=== PATIENT | male | born 1930 | race African-American/Black ===

== ENCOUNTER 2019-09-05 07:57 | Inpatient (IN) | payer MEDICARE, MEDICAID ==
[~2019-09-05] VITALS: Ht 177.8 cm; Wt 79.4 kg
[~2019-09-05 07:57] MED LIST: ALBU2.5V13 NEB; AMIN30LI2 PO; ASCO100T12 MT; ASPI-1158 MT; BISA-81 PO; BUDE0.5A3 NEB; CLON-457 MT; DOCU-138 MT; FAMO-135 MT; FERR-71 MT; FOLI-43 MT; MOM MT; MULT-1116 MT; TOPUD MT; TRAM100T34 MT; TRAM50TA3 MT; VIT1CAPS47 MT
[2019-09-05] MEDS ORDERED: METHYLPREDNISOLONE SOD SUCC 125 MG/2 ML VIAL IV STA (08:38)
[2019-09-05] MEDS ORDERED: ALBUTEROL (0.083%) 2.5MG/3ML NEB HHN STA (08:38)
[2019-09-05] MEDS ORDERED: IPRATROPIUM BROMIDE (0.02%) 0.5MG/2.5ML NEB HHN STA (08:38)
[2019-09-05 08:52] LABS: BASOPHILS % 0.7 % (0.0-2.0); EOSINOPHILS % 2.1 % (0.0-5.0); HEMATOCRIT. 34.4 % (42.0-52.0); HEMOGLOBIN. 11.2 g/dL (14.0-18.0); LYMPHOCYTES % 18.5 % (20.0-50.0); MEAN CORPUSCULAR HEMOGLOBIN 30.2 pg (28.0-32.0); MEAN CORPUSCULAR VOLUME 92.4 fL (80.0-94.0); MEAN PLATELET VOLUME 9.6 fl (7.4-10.4); MONOCYTES % 10.5 % (2.0-8.0); NEUTROPHILS % 68.2 % (40.0-76.0); PLATELET 161 x1000/uL (130-400); RED BLOOD CELL COUNT 3.72 mill/uL (4.7-6.1); RED CELL DISTRIBUTION WIDTH 16.3 % (11.6-14.6)
[2019-09-05 08:59] LABS: CHLORIDE 103 mEq/L (98-107)
[2019-09-05] MEDS ORDERED: LEVOFLOXACIN 750MG PREMIX 150 ML IV ONE (09:45)
[2019-09-05] MEDS: GUAIFENESIN 200MG/10ML SUGAR FREE UDC PO PRN ×2 (14:07→19:04)
[2019-09-05] MEDS ORDERED: ACETAMINOPHEN 325MG TABLET PO PRN (15:15)
[2019-09-05] MEDS ORDERED: ONDANSETRON HCL 4MG/2ML INJ IV PRN (15:15)
[2019-09-05] MEDS ORDERED: IPRATROPIUM/ALBUTEROL 0.5-3(2.5)MG/3ML NEB HHN PRN ×2 (15:15→17:45)
[2019-09-05] MEDS ORDERED: ENOXAPARIN 40MG/0.4ML SYR SUBCUT SCH (15:15)
[2019-09-05] MEDS ORDERED: LEVOFLOXACIN 500MG PREMIX 100 ML IV SCH (15:15)
[2019-09-05] MEDS: METHYLPREDNISOLONE SOD SUCC 40 MG/ML VIAL IV SCH (17:12)
[2019-09-05 20:30] VITALS: BP 128/70
[2019-09-05 21:00] VITALS: BP 128/70
[2019-09-05] MEDS: IPRATROPIUM/ALBUTEROL 0.5-3(2.5)MG/3ML NEB HHN SCH (21:30)
[2019-09-06] VITALS: BP 132/79
[2019-09-06] MEDS: GUAIFENESIN 200MG/10ML SUGAR FREE UDC PO PRN (00:08)
[2019-09-06] MEDS ORDERED: DILT30TA3 PO (00:46)
[2019-09-06] MEDS ORDERED: IPRA3AMP31 IH (00:46)
[2019-09-06] MEDS ORDERED: OLOP2.5D EACHEYE (00:46)
[2019-09-06] MEDS ORDERED: NA P230E RC (00:46)
[2019-09-06] MEDS ORDERED: LEVO750T21 PO (00:46)
[2019-09-06] MEDS ORDERED: [UNRECOGNIZED DRUG - OTHER] PO (00:46)
[2019-09-06] MEDS: IPRATROPIUM/ALBUTEROL 0.5-3(2.5)MG/3ML NEB HHN SCH ×5 (00:52→20:55)
[2019-09-06] MEDS: METHYLPREDNISOLONE SOD SUCC 40 MG/ML VIAL IV SCH ×2 (02:41→10:47)
[2019-09-06 04:00] VITALS: BP 170/87
[2019-09-06] MEDS: PANTOPRAZOLE 40MG DR TABLET PO SCH (06:37)
[2019-09-06 08:00] VITALS: BP 141/80
[2019-09-06] MEDS: ENOXAPARIN 40MG/0.4ML SYR SUBCUT SCH (09:00)
[2019-09-06] MEDS: ASPIRIN 81MG TABLET PO SCH (09:20)
[2019-09-06] MEDS ORDERED: CLONIDINE 0.1MG TABLET PO PRN (09:30)
[2019-09-06] MEDS: LEVOFLOXACIN 500MG PREMIX 100 ML IV SCH (10:51)
[2019-09-06 11:18] LABS: HEMATOCRIT. 34.7 % (42.0-52.0); HEMOGLOBIN. 11.5 g/dL (14.0-18.0); MEAN CORPUSCULAR HEMOGLOBIN 30.4 pg (28.0-32.0); MEAN CORPUSCULAR VOLUME 91.9 fL (80.0-94.0); MEAN PLATELET VOLUME 8.9 fl (7.4-10.4); PLATELET 204 x1000/uL (130-400); RED BLOOD CELL COUNT 3.77 mill/uL (4.7-6.1); RED CELL DISTRIBUTION WIDTH 15.8 % (11.6-14.6)
[2019-09-06 11:29] LABS: CHLORIDE 103 mEq/L (98-107)
[2019-09-06 12:00] VITALS: BP 162/89
[2019-09-06] MEDS: DILTIAZEM HCL 30MG TABLET PO SCH ×2 (12:00→17:31)
[2019-09-06 13:26] LABS: PLATELET ESTIMATE NORMAL
[2019-09-06 16:00] VITALS: BP 146/82
[2019-09-06] MEDS: PREDNISONE 20MG TABLET PO SCH (17:35)
[2019-09-06 20:32] VITALS: BP 141/85
[2019-09-07] MEDS: IPRATROPIUM/ALBUTEROL 0.5-3(2.5)MG/3ML NEB HHN SCH ×4 (01:30→12:00)
[2019-09-07 04:00] VITALS: BP 158/87
[2019-09-07] MEDS: GUAIFENESIN 200MG/10ML SUGAR FREE UDC PO PRN ×2 (04:19→17:14)
[2019-09-07] MEDS: PANTOPRAZOLE 40MG DR TABLET PO SCH (06:20)
[2019-09-07] MEDS: DILTIAZEM HCL 30MG TABLET PO SCH ×4 (06:20→17:09)
[2019-09-07 08:16] LABS: HEMATOCRIT. 34.4 % (42.0-52.0); HEMOGLOBIN. 11.4 g/dL (14.0-18.0); MEAN CORPUSCULAR HEMOGLOBIN 30.6 pg (28.0-32.0); MEAN PLATELET VOLUME 8.9 fl (7.4-10.4); PLATELET 219 x1000/uL (130-400); RED BLOOD CELL COUNT 3.74 mill/uL (4.7-6.1); RED CELL DISTRIBUTION WIDTH 15.7 % (11.6-14.6)
[2019-09-07 08:34] VITALS: BP 165/69
[2019-09-07 08:42] LABS: CHLORIDE 105 mEq/L (98-107)
[2019-09-07] MEDS: ASPIRIN 81MG TABLET PO SCH (10:00)
[2019-09-07] MEDS: LEVOFLOXACIN 500MG PREMIX 100 ML IV SCH (10:01)
[2019-09-07] MEDS: ENOXAPARIN 40MG/0.4ML SYR SUBCUT SCH (10:01)
[2019-09-07] MEDS: PREDNISONE 20MG TABLET PO SCH (12:00)
[2019-09-07 12:05] VITALS: BP 118/61
[2019-09-07 13:08] LABS: PLATELET ESTIMATE NORMAL
[2019-09-07 15:57] VITALS: BP 127/82
[2019-09-07 20:00] VITALS: BP 134/69
[2019-09-08] VITALS: BP 138/65
[2019-09-08] MEDS: DILTIAZEM HCL 30MG TABLET PO SCH ×4 (00:40→17:44)
[2019-09-08 04:00] VITALS: BP 134/67
[2019-09-08] MEDS: PANTOPRAZOLE 40MG DR TABLET PO SCH (06:40)
[2019-09-08 06:44] LABS: BASOPHILS % 0.1 % (0.0-2.0); EOSINOPHILS % 0.1 % (0.0-5.0); HEMATOCRIT. 34.8 % (42.0-52.0); HEMOGLOBIN. 11.5 g/dL (14.0-18.0); LYMPHOCYTES % 10.2 % (20.0-50.0); MEAN CORPUSCULAR HEMOGLOBIN 30.6 pg (28.0-32.0); MEAN CORPUSCULAR VOLUME 92.5 fL (80.0-94.0); MEAN PLATELET VOLUME 8.7 fl (7.4-10.4); MONOCYTES % 9.6 % (2.0-8.0); PLATELET 207 x1000/uL (130-400); RED BLOOD CELL COUNT 3.77 mill/uL (4.7-6.1)
[2019-09-08 07:14] LABS: CHLORIDE 103 mEq/L (98-107)
[2019-09-08 08:05] VITALS: BP 144/67
[2019-09-08] MEDS: ASPIRIN 81MG TABLET PO SCH (08:33)
[2019-09-08] MEDS: ENOXAPARIN 40MG/0.4ML SYR SUBCUT SCH (08:33)
[2019-09-08] MEDS ORDERED: PREDNISONE 20MG TABLET PO SCH (09:00)
[2019-09-08] MEDS: LEVOFLOXACIN 500MG PREMIX 100 ML IV SCH (10:23)
[2019-09-08] MEDS: GUAIFENESIN 200MG/10ML SUGAR FREE UDC PO PRN (10:23)
[2019-09-08 11:59] VITALS: BP 122/84
[2019-09-08 16:09] VITALS: BP 130/69
[2019-09-08 18:14] VITALS: BP 130/69
[2019-09-09] MEDS ORDERED: FAMOTIDINE 20MG TABLET PO SCH (09:00)
[2019-09-09] MEDS ORDERED: LEVOFLOXACIN 500MG TABLET PO SCH (11:00)
== END 2019-09-08 18:40 | DRG 871 ==
LOC: ER 07:57 → 6WST 10:21 → EDBEDREQTM 10:30 → EDBEDREQ 10:30 → ENRESERV 18:32 → 6WST 21:52
PROVIDERS: ADMIT Internal Medicine; ATTEND Internal Medicine
DX: A41.9 Sepsis, unspecified organism (principal); J96.00 Acute respiratory failure, unspecified whether with hypoxia or hypercapnia; J18.9 Pneumonia, unspecified organism; J44.1 Chronic obstructive pulmonary disease with (acute) exacerbation; J44.0 Chronic obstructive pulmonary disease with (acute) lower respiratory infection; I25.10 Atherosclerotic heart disease of native coronary artery without angina pectoris; I10 Essential (primary) hypertension; F02.80 Dementia in other diseases classified elsewhere, unspecified severity, without behavioral disturbance, psychotic disturbance, mood disturbance, and anxiety; K21.9 Gastro-esophageal reflux disease without esophagitis; I27.20 Pulmonary hypertension, unspecified; M19.90 Unspecified osteoarthritis, unspecified site; D64.9 Anemia, unspecified; Z96.651 Presence of right artificial knee joint; Z99.81 Dependence on supplemental oxygen; G30.9 Alzheimer's disease, unspecified; Z79.82 Long term (current) use of aspirin; Z87.891 Personal history of nicotine dependence
CPT/HCPCS: 36415; 71045; 80048; 80053; 83880; 84484; 85025; 93005; 96365; 99285; J1650; J1956; J2920; J2930; J7512; J7611; J7620

== ENCOUNTER 2019-10-07 19:06 | Emergency (ER) | payer MEDICARE, MEDICAID ==
[~2019-10-07] VITALS: Ht 188 cm; Wt 92.0 kg
[~2019-10-07 19:06] MED LIST changes: -ALBU2.5V13 NEB; -AMIN30LI2 PO; -ASCO100T12 MT; -CLON-457 MT; +DILT30TA3 PO; -FERR-71 MT; -FOLI-43 MT; +IPRA3AMP31 IH; +LEVO750T21 PO; -MULT-1116 MT; +NA P230E RC; +OLOP2.5D EACHEYE; -TRAM100T34 MT; -TRAM50TA3 MT; -VIT1CAPS47 MT; +[UNRECOGNIZED DRUG - OTHER] PO
[2019-10-07 21:55] LABS: CHLORIDE 101 mEq/L (98-107); EOSINOPHILS % 1.8 % (0.0-5.0); HEMATOCRIT. 36.1 % (42.0-52.0); HEMOGLOBIN. 11.7 g/dL (14.0-18.0); LYMPHOCYTES % 10.7 % (20.0-50.0); MEAN CORPUSCULAR HEMOGLOBIN 30.7 pg (28.0-32.0); MEAN CORPUSCULAR VOLUME 94.6 fL (80.0-94.0); MEAN PLATELET VOLUME 9.1 fl (7.4-10.4); MONOCYTES % 10.1 % (2.0-8.0); NEUTROPHILS % 76.4 % (40.0-76.0); PLATELET 172 x1000/uL (130-400); RED BLOOD CELL COUNT 3.82 mill/uL (4.7-6.1); RED CELL DISTRIBUTION WIDTH 17.4 % (11.6-14.6)
[2019-10-07] MEDS ORDERED: SODIUM CHLORIDE 0.9% 1,000 ML IV NR (23:00)
[2019-10-08 00:16] VITALS: BP 155/75
[2019-11-15] MEDS ORDERED: DEXTL MT (23:32)
[2019-11-15] MEDS ORDERED: CLON0.1T PO (23:33)
== END 2019-10-08 00:30 | disposition home or self-care (01) ==
LOC: ER 19:06
DX: R06.00 Dyspnea, unspecified (principal); J45.909 Unspecified asthma, uncomplicated; I10 Essential (primary) hypertension; Z79.899 Other long term (current) drug therapy
CPT/HCPCS: 36415; 71045; 80053; 83880; 84484; 85025; 93005; 99284

== ENCOUNTER 2019-10-20 11:57 | Emergency (ER) | payer MEDICARE, MEDICAID ==
[~2019-10-20] VITALS: Ht 172.7 cm; Wt 69.0 kg
[2019-10-20 13:45] LABS: BASOPHILS % 1.4 % (0.0-2.0); EOSINOPHILS % 3.2 % (0.0-5.0); HEMOGLOBIN. 10.6 g/dL (14.0-18.0); LYMPHOCYTES % 13.5 % (20.0-50.0); MEAN CORPUSCULAR HEMOGLOBIN 30.7 pg (28.0-32.0); MEAN CORPUSCULAR VOLUME 95.8 fL (80.0-94.0); MEAN PLATELET VOLUME 8.9 fl (7.4-10.4); MONOCYTES % 7.1 % (2.0-8.0); NEUTROPHILS % 74.8 % (40.0-76.0); PLATELET 179 x1000/uL (130-400); RED BLOOD CELL COUNT 3.44 mill/uL (4.7-6.1); RED CELL DISTRIBUTION WIDTH 18.4 % (11.6-14.6)
[2019-10-20 13:50] LABS: CHLORIDE 100 mEq/L (98-107)
[2019-10-20 13:53] LABS: ETHANOL BLOOD < 10 mg/dL
[2019-10-20 14:59] LABS: CLARITY URINE CLEAR (CLEAR); COLOR URINE YELLOW (YELLOW); KETONES URINE TRACE (NEGATIVE); LEUKOCYTE ESTERASE URINE NEGATIVE (NEGATIVE); NITRITE URINE NEGATIVE (NEGATIVE); OCCULT BLOOD URINE NEGATIVE (NEGATIVE); PROTEIN URINE TRACE (NEGATIVE); SPECIFIC GRAVITY URINE 1.021 (1.005-1.030)
[2019-10-20 15:18] LABS: *BARBITURATES SCREEN URINE NEGATIVE (NEGATIVE); *BENZODIAZEPINES SCREEN URINE NEGATIVE (NEGATIVE); *COCAINE SCREEN URINE NEGATIVE (NEGATIVE); CANNABINOID URINE SCREEN NEGATIVE (NEGATIVE); METHADONE URINE SCREEN NEGATIVE (NEGATIVE); OPIATES URINE SCREEN NEGATIVE (NEGATIVE); PHENCYCLIDINE URINE SCREEN NEGATIVE (NEGATIVE)
[2019-10-20 15:19] LABS: *AMPHETAMINES SCREEN URINE NEGATIVE (NEGATIVE)
[2019-10-20 18:35] VITALS: BP 130/70
== END 2019-10-20 18:54 | disposition home or self-care (01) ==
LOC: ER 12:23
DX: R53.1 Weakness (principal); R41.82 Altered mental status, unspecified; J44.9 Chronic obstructive pulmonary disease, unspecified; F03.90 Unspecified dementia, unspecified severity, without behavioral disturbance, psychotic disturbance, mood disturbance, and anxiety; I10 Essential (primary) hypertension; Z79.899 Other long term (current) drug therapy
CPT/HCPCS: 36415; 71045; 80053; 80305; 80320; 81003; 82962; 83880; 84443; 84484; 85025; 93005; 99285; G0480